=== PATIENT | female | born 1940 | race Caucasian/White ===

== ENCOUNTER 2016-10-17 06:41 | Outpatient (CLI) | payer MEDICARE, BC ==
[~2016-10-17] VITALS: Ht 157.5 cm; Wt 91.5 kg
--- NOTE | ~2016-10-17 | CATH ---
Cardiac Diagnostic + PCI Report Demographics Patient Name CLAUDIA Sharp Gender Female Date of 1940 Age 76 year(s) Patient Number [id number] Date of Study 10/17/2016 Visit Number [id number] Room Number G63[address] [place] [id number] Ht 157.48 cm Wt 91.5 kg Referring Brandyn Holcomb Primary Physician Physician Performing [facility] Secondary Physician Physician Yane TURNER Diagnostic [facility] Assisting Physician Physician Yane TURNER Interventional [facility] Physician System Development Manager Physician Yane TURNER Findings and Conclusions Diagnostic Findings and Conclusion 2 vessel CAD. Critical RCA and mid LAD stenosis. Unstable angina. Diagnostic Recommendations PCI of RCA and Mid LAD. Interventional Findings and Conclusion S\E\E\E\P PCI of RCA with BOB 30 X 16. S\E\E\E\P PCI of Mid LAD with 30 X 20 BOB and due to plaque shift into Diag post PCI of about 70% stenosis S\E\E\E\P PTCA with 20% residual. Interventional Recommendations DAPT x 1 year. Patient will be observed overnight. Hydration and followup creatinine. Continue current medications. Patient has been instructed to not lift anything more than 5 pounds for 1 week. Aggressive risk factor management. Aggressive medical therapy for coronary artery disease. Cardiac diet . Optimization of medical therapy as an outpatient. Referral to Cardiac Rehabilitation now and at discharge . Procedure Description The patient was brought to the diagnostic cardiac catheterization-EP laboratory in the fasting, non-sedated state. Informed consent was obtained in the written and verbal form after the risks and benefits were explained. The patient had no further questions and agreed to proceed. The planned puncture-incision site(s) were shaved and prepped with ChloraPrep and draped in the usual sterile manner. Conscious sedation, supplemental oxygen, and pain control medications were delivered by a registered nurse under physician guidance. Surface ECG rhythm, blood pressure measurement, and pulse oximetry were monitored throughout the procedure. Arterial access. The access site was infiltrated with lidocaine. The vessel was entered with the Seldinger technique. A sheath was advanced into the vessel and used for catheter placement. Selective left coronary angiography. A catheter was advanced into the left coronary vessel ostium under Fluoroscopic guidance. Contrast was injected by hand. Images were obtained in multiple projections. Selective right coronary angiography. A catheter was advanced into the right coronary vessel ostium under fluoroscopic guidance. Contrast was injected by hand. Images were obtained in multiple projections. Left heart catheterization. A catheter was advanced across the aortic valve to the left ventricle under fluoroscopic guidance. Resting hemodynamics were obtained. Angioplasty and Stent Placement: A guiding catheter was used to intubate the vessel. A 0.14 wire was then used to cross the RCA lesion. A balloon catheter was placed across the lesion and inflated. The balloon catheter was then removed. A Drug Eluting Stent was placed and inflated. Post placement angiograms were performed. Angioplasty and Stent Placement: A guiding catheter was used to intubate the vessel. A 0.14 wire was then used to cross the LAD lesion. A balloon catheter was placed across the lesion and inflated. The balloon catheter was then removed. A Drug Eluting Stent was placed and inflated. Post placement angiograms were performed. Angioplasty: A guiding catheter was used to intubate the vessel. A 0.14 wire was used to cross the lesion. A balloon was positioned across the Diag 1 lesion and inflated. Post placement angiograms were performed. Arterial artery hemostasis was achieved. The patient was transferred to a regular nursing floor via cart accompanied by a nurse. The patient left the laboratory in stable condition. Diagnostic Cath Status: Elective Interventional Cath Status: Urgent Procedure Procedure Type Diagnostic procedure:Angiography:, Coronary Angios w/[facility] PCI procedure:Drug Eluting Coronary Stent:, LAD, RCA, PTCA:, Diagonal Indications: Unstable angina. The procedure was explained in detail to the patient. Risks, complications and alternative treatments were reviewed. Written consent was obtained. Medications Reviewed with Patient prior to Procedure. Angiographic Findings Dominance: Right Cardiac Arteries and Lesion Findings LMCA: Normal (0% Stenosis). LAD: Lesion on Mid LAD: Mid subsection.90% stenosis 18 mm length reduced to 0%. Pre procedure BELINDA III flow was noted. Post Procedure BELINDA III flow was present. The guidewire cross was successful.The lesion was diagnosed as a high risk lesion. Treatment results:Interventional treatment was successful. Devices used - Emerge Balloon 3.0 x 15. 2 inflation(s) to a max pressure of: 6 luis alberto. - Promus Premier 3.0 x 20 Stent. 2 inflation(s) to a max pressure of: 14 luis alberto. - NC Emerge Balloon 3.0 x 15. 1 inflation(s) to a max pressure of: 18 luis alberto. Lesion on 1st Diag: Ostial.70% stenosis 10 mm length reduced to 20%.The guidewire cross was successful. Treatment results:Interventional treatment was successful. Devices used - Runthrough NS .014 x 180. Number of passes: 1. - Emerge Balloon 3.0 x 15. 1 inflation(s) to a max pressure of: 4 luis alberto. - Emerge Balloon 2.5 x 12. 1 inflation(s) to a max pressure of: 6 luis alberto. LCx: OM normal Lesion on Prox CX: Proximal subsection.40% stenosis . RCA: PL and PDA normal. Lesion on Prox RCA: Proximal subsection.99% stenosis 16 mm length .Culprit lesion. Devices used - Runthrough NS .014 x 180. Number of passes: 3. - Emerge Balloon 3.0 x 15. 1 inflation(s) to a max pressure of: 6 luis alberto. - Promus Premier 3.0 x 16 Stent. 2 inflation(s) to a max pressure of: 14 luis alberto. Lesion on Dist RCA: Distal subsection.40% stenosis . Ramus: Normal (0% Stenosis). Coronary Tree Procedure Data Procedure Date Date: 10/17/2016Start: 10:04 AMEnd: 11:04 AM Entry Locations - Retrograde Percutaneous access was performed through the Right Radial artery (Primary location). A 6 Fr sheath was inserted. Hemostasis was successfully obtained using Mechanical Compression. Closure Comments: 16 ml's of air in Radial band placed by Charlie Schulz. . Procedure Medications Order and Administration + + + + + !Time !Medication !Dosage !Route ! + + + + + !10/17/2016 10:02 !Versed !1 mg !I.V. ! !AM ! ! ! ! + + + + + !10/17/2016 10:02 !Fentanyl !50 mcg !I.V. ! !AM ! ! ! ! + + + + + !10/17/2016 10:05 !Oxygen !2 l/min !NC ! !AM ! ! ! ! + + + + + !10/17/2016 10:06 !Oxygen !6 l/min !NC ! !AM ! ! ! ! + + + + + !10/17/2016 10:10 !Radial Verapamil !2.5 mg !I.A. ! !AM ! ! ! ! + + + + + !10/17/2016 10:13 !Heparin (ACC_3) !5000 units !I.V. bolus ! !AM ! ! ! ! + + + + + !10/17/2016 10:17 !Angiomax (Bivalirudin) !67.5 mg !I.V. bolus ! !AM !(ACC_5) ! ! ! + + + + + !10/17/2016 10:18 !Angiomax (Bivalirudin) !1.75 mg/kg/hr!I.V. drip ! !AM !(ACC_5) ! ! ! + + + + + !10/17/2016 10:53 !Nitroglycerin !200 mcg !I.C. ! !AM ! ! ! ! + + + + + !10/17/2016 10:59 !Brilinta (Ticagrelor) !180 mg !P.O. ! !AM !(ACC_20) ! ! ! + + + + + Devices Used - A5 Fr. BS JR 4 Diag. Catheterwas used for:LV Pressures. - A5 Fr. BS JL 3.5 Diag. Catheterwas used for:Left coronary angiography. - A6 Fr. JR4 Guide Catheterwas used for:RCA Intervention. - A6 Fr. EBU 3.5 Guide Catheterwas used for:LAD Intervention. Contrast Material - Isovue [id number] ml Fluoroscopy Time: Diagnostic: 17:24 minutes. Total: 17:24 minutes. Fluoroscopy Dose: Diagnostic: 1505 mGy. Total: 1505 mGy. Estimated Blood Loss: 20 ml. Additional ACC PCI Information PCI Indication:PCI for high risk Non-STEMI or unstable angina. Medical History Performed Procedures and Imaging Results - Standard exercise stress testwas performed. Results were: Positive. Risk/Extent of ischemia was: High risk. History of Disease + + + + !Diagnosis !Date !Comments ! + + + + !Hypertension ! ! ! + + + + !CAD ! ! ! + + + + Allergies - No known allergies. Risk Factors The patient risk factors include:prior PCI on 04/21/1987;hypercholesterolemia, hypertension, family history of premature CAD, last creatinine: 1 mg/dl, creatinine clearance: 70.21 ml/min and dyslipidemia. Admission Data Admission Date: 10/17/2016 Admission Time: 06:41 AM Admit Source: Other Insurance Payors: Medicare. Admission Medications + +------+------+ + + + + !Medication !Dosage!Times !Last !Last !Administered !Comments ! ! ! !Per !Delivery !Delivery ! ! ! ! ! !Day !Date !Time ! ! ! + +------+------+ + + + + !Aspirin ! ! ! ! !Yes ! ! !(any) ! ! ! ! ! ! ! + +------+------+ + + + + !Beta ! ! ! ! !Yes ! ! !Vinayak ! ! ! ! ! ! ! !(any) ! ! ! ! ! ! ! + +------+------+ + + + + Clinical Evaluation Leading to Procedure - The patient's CAD presentation was assessed as: Unstable angina. - The patient's anginal syndrome during the past two weeks was assessed as: Class III according to the [place] Cardiovascular Society Classification System (CCS). Anti-anginal medications were prescribed during the past two weeks. The medications are: Beta Blockers and Ranolazine. - The patient has been in a state of heart failure within the past two weeks. - The patient's heart failure status was assessed as NYHA Class II, with CHF symptoms of ATKINSON. Snapshots Hemodynamics Condition: Rest O2 Consumption: Estimated: 163.75Heart Rate: 55 bpm Pressures (mmHg) +-----+ + !Site !Pressure ! +-----+ + !LV !141/4 ,17 ! +-----+ + !LV !140/7 ,14 ! +-----+ + !AO !134/64 (91) ! +-----+ + Shunts Oxygen Values O2 Capacity 163.2 O2 Consumption 163.75 Signatures dtt: YANE CASTLE dtd: 10/17/16 1004 Physician Self Edit
[~2016-10-17 06:41] MED LIST: ASPIRIN EC81 MG PO; NITROSTAT0.4 MG SL; THERA-VITE W/ B1 TAB PO; TOPROL XL25 MG PO
[2016-10-17 07:34] LABS: BASOPHIL % 0.4 %; EOSINOPHIL # 0.1 K/uL (0.0-0.5); EOSINOPHIL % 1.1 %; HEMOGLOBIN 12.6 g/dL (10.0-15.0); IMMATURE GRANULOCYTE % 0.2 %; LYMPHOCYTE # 1.9 K/uL (0.8-4.0); LYMPHOCYTE % 34.7 %; MCH 30.6 pg (27.0-34.0); MCHC 33.2 gm/dL (32.0-36.5); MCV 92.2 fl (83.0-98.0); MONOCYTE # 0.6 K/uL (0.0-1.0); MONOCYTE % 11.6 %; MPV 10.2 fl (9.4-12.4); NEUTROPHIL # (ANC) 2.8 K/uL (1.8-7.8); NRBC % 0 /100WBC (0-0.00); PLATELET COUNT 206 K/uL (150-450); RBC 4.12 M/uL (3.50-5.50); RDW-CV 13.2 % (11.9-14.6); WBC 5.3 K/uL (4.0-11.0)
[2016-10-17 07:43] LABS: INR - (THERAPEUTIC) 0.92 (0.92-1.07); PROTIME 9.7 SECONDS (9.8-11.4); PTT 28 SECONDS (25-32)
[2016-10-17 07:50] LABS: ALBUMIN 3.6 gm/dL (3.5-5.0); ANION GAP 10.9 (10.0-19.0); CALCIUM 8.5 mg/dL (8.5-10.5); POTASSIUM 3.9 mMol/L (3.7-5.1); TOTAL BILIRUBIN 0.4 mg/dL (0.0-1.5); TOTAL PROTEIN 7.4 g/dL (6.0-8.4)
[2016-10-17 12:16] LABS: CPK 139 IU/L (21-215)
--- NOTE | 2016-10-17 17:53 | NUR ---
Significant Event: VSS AND RA. RT)RADIAL SITE ECCHYMOTIC WITH A SMALL HEMATOMA WHEN ARRIVED TO FLOOR, WHICH RESOLVED AFTER PRESSURE HELD FOR APPROX 10 MINUTES. R-BAND OFF AT 1650 AND BAND-AID AND COBAN APPLIED AND SITE HAS REMAINED C/D/I. AMBULATED [place] WITH CARDIAC REHAB AND VOIDED X1. DENIES CP. UP TO RECLINER MOST OF AFTERNOON. Follow up: CONTINUE PLAN OF CARE; PROBABLE D/C IN AM; SALINE LOCK IV AFTER LITER IS COMPLETE.
[2016-10-18 04:05] LABS: BASOPHIL % 0.3 %; EOSINOPHIL # 0.1 K/uL (0.0-0.5); EOSINOPHIL % 1.3 %; HEMATOCRIT 37.1 % (33.0-46.0); HEMOGLOBIN 12.2 g/dL (10.0-15.0); IMMATURE GRANULOCYTE % 0.5 %; LYMPHOCYTE # 1.6 K/uL (0.8-4.0); LYMPHOCYTE % 26.2 %; MCH 30.2 pg (27.0-34.0); MCHC 32.9 gm/dL (32.0-36.5); MCV 91.8 fl (83.0-98.0); MONOCYTE # 0.6 K/uL (0.0-1.0); MONOCYTE % 10.6 %; MPV 10.3 fl (9.4-12.4); NEUTROPHIL # (ANC) 3.6 K/uL (1.8-7.8); NEUTROPHIL % 61.1 %; NRBC % 0 /100WBC (0-0.00); PLATELET COUNT 173 K/uL (150-450); RBC 4.04 M/uL (3.50-5.50); RDW-CV 13.2 % (11.9-14.6)
[2016-10-18 04:24] LABS: ALBUMIN 3.1 gm/dL (3.5-5.0); ALK PHOS 97 IU/L (33-138); ALT 25 IU/L (12-78); ANION GAP 10.9 (10.0-19.0); AST 18 IU/L (10-40); BLOOD UREA NITROGEN 16 mg/dL (6-24); CALCIUM 8.4 mg/dL (8.5-10.5); CHLORIDE 107 mMol/L (96-110); CO2 25 mMol/L (22-32); CREATININE 0.9 mg/dL (0.5-1.1); ESTIMATED GFR (MDRD EQUATION) > 60; POTASSIUM 3.9 mMol/L (3.7-5.1); SODIUM 139 mMol/L (135-145); TOTAL BILIRUBIN 0.7 mg/dL (0.0-1.5); TOTAL PROTEIN 6.6 g/dL (6.0-8.4)
--- NOTE | 2016-10-18 05:07 | NUR ---
Significant events: Pt A/Ox3. VSS. No complaints of pain. Up SBA. R) radial cath site eccymotic. On RA. Slept most of shift. To go home today.
[2016-10-18] MEDS ORDERED: BRILINTA90 MG PO (10:41)
[2016-10-18] MEDS ORDERED: VASOTEC2.5 MG PO (10:42)
[2016-10-18] MEDS ORDERED: REPATHA SY140 MG/1 M SUB-Q (10:45)
--- NOTE | 2016-10-18 12:11 | NUR ---
d-dr ashley kahn i-nurse did teaching on all meds with new ones explained and info given, info discussed on cath/stent/radial care and what to watch for, appts set up, pt will go to clinic now for cholesterol injection and med card for blood thinner, iv dcd intact, R)radial good radial pulse 2+ and pt shown how to take pulse and watch for any worsening bruise or if bleeds what to do. r-pt and daughter state understanding of all p-dcd as ordered, pt states alittle dizzy as gets with bp meds, sbp 137 pulse 66, pt ambulates amaya well and up in room,
== END 2016-10-18 12:00 | disposition disaster alternative care site (69) ==
LOC: GCAT 06:41 → GPCU 06:41 → GPOC 07:00 → GPCU 10:57 → GPOC 13:00 → GCAT 10-18 12:00
PROVIDERS: Internal Medicine Interventional Cardiology
DX: I25.110 Atherosclerotic heart disease of native coronary artery with unstable angina pectoris (principal); I10 Essential (primary) hypertension; E78.5 Hyperlipidemia, unspecified; I65.22 Occlusion and stenosis of left carotid artery; R60.0 Localized edema
CPT/HCPCS: C1725; C1769; C1874; C1887; C9600; J0583; J1644; J2001; J2250; J3010; J7030; J7060